=== PATIENT | female | born 1980 | race Caucasian/White ===

== ENCOUNTER 2017-08-21 13:18 | Inpatient (IN) | payer OTHER ==
[~2017-08-21] VITALS: Ht 167.6 cm; Wt 52.6 kg
[2017-08-21 14:52] LABS: APPEARANCE SL.HAZY ((CLEAR)); BILIRUBIN NEGATIVE; BLOOD NEGATIVE; COLOR YELLOW ((YELLOW)); GLUCOSE (STRIP) NEGATIVE; KETONES 5; LEUKOCYTES NEGATIVE; NITRITE NEGATIVE; PROTEIN (STRIP) NEGATIVE; SPECIFIC GRAVITY 1.031 (1.000-1.030); UROBILINOGEN 0.2 MG/DL (0.2-1.0)
[2017-08-21 14:55] LABS: BACTERIA NONE SEEN /HPF; EPITHELIAL CELLS RARE /HPF; MUCUS TRACE /LPF; RED BLOOD CELLS 0-5 /HPF (0-5); WHITE BLOOD CELLS 0-5 /HPF (0-5)
[2017-08-21 14:56] LABS: HEMATOCRIT 33.1 % (36.0-46.0); HEMOGLOBIN 11.4 G/DL (11.9-15.5); MCH 31.3 PG (29.0-34.0); MCHC 34.4 G/DL (30.0-36.0); MCV 90.9 FL (83-99); PLATELET COUNT 231 K/uL (156-360); RBC DIS.WIDTH-CV 13.7 % (11.8-14.6); RBC DIS.WIDTH-SD 46.2 % (39-53); RED BLOOD COUNT 3.64 M/uL (3.80-5.20); WHITE BLOOD COUNT 6.6 K/uL (4.1-10.2)
[2017-08-21 15:04] LABS: AMPHETAMINE PRESUMPTIVE POSITIVE (500 ng/mL); BENZODIAZEPINES PRESUMPTIVE POSITIVE (150 ng/mL); COCAINE NEGATIVE (150 ng/mL); METHAMPHETAMINE NEGATIVE (500 ng/mL); OPIATES (MORPHINE) NEGATIVE (100 ng/mL); PHENCYCLIDINE NEGATIVE (25 ng/mL); THC CANNABINOIDS PRESUMPTIVE POSITIVE (50 ng/mL)
[2017-08-21 15:05] LABS: ALBUMIN 4.1 g/dL (3.2-4.8); CHLORIDE 107 mEq/L (99-109); SODIUM 142 mEq/L (136-147)
[2017-08-21 15:05] LABS: BARBITURATES NEGATIVE (200 ng/mL); BUPRENORPHINE NEGATIVE (10 ng/mL); METHADONE NEGATIVE (200 ng/mL); OXYCODONE NEGATIVE (100 ng/mL); PROPOXYPHENE NEGATIVE (300 ng/mL); TRICYCLIC ANTIDEPRESSANTS NEGATIVE (300 ng/mL)
[2017-08-21 15:07] LABS: GLUCOSE 81 mg/dL (70-99)
[2017-08-21 15:08] LABS: TOTAL PROTEIN 6.9 g/dL (6.4-8.3)
[2017-08-21 15:09] LABS: TOTAL BILIRUBIN 0.2 mg/dL (0.0-1.0)
[2017-08-21 15:10] LABS: SERUM ETHYL ALCOHOL < 10 mg/dL
[2017-08-21 15:11] LABS: ALKALINE PHOSPHATASE 48 IU/L (3-129); CREATININE 0.7 mg/dL (0.6-1.3); GFR ESTIMATE (CALCULATED) > 59 mL/min/
[2017-08-21 15:12] LABS: UREA NITROGEN (BUN) 22 mg/dL (9-23)
[2017-08-21 15:13] LABS: AST (GOT) 17 IU/L (2-34)
[2017-08-21 15:14] LABS: ALT (GPT) 15 IU/L (3-49)
[2017-08-21 15:22] LABS: QUANTITATIVE HCG < 4.0 MIU/ML
[2017-08-21 15:34] LABS: BENZODIAZEPINES, URINE SCREEN POSITIVE (200 ng/mL)
[2017-08-21] MEDS ORDERED: KLONOPIN1 MG PO ×2 (16:54→16:55)
[2017-08-21] MEDS ORDERED: ADDERALL XR 1010 MG PO (16:54)
[2017-08-21] MEDS ORDERED: IBUPROFEN800 MG PO (16:56)
[2017-08-21 17:18] VITALS: BP 104/57
[2017-08-22 07:44] VITALS: BP 96/51
[2017-08-22 15:25] VITALS: BP 90/55
[2017-08-23 07:27] VITALS: BP 138/70
[2017-08-23 15:38] VITALS: BP 113/58
[2017-08-24 07:25] VITALS: BP 100/56
[2017-08-24 15:52] VITALS: BP 142/84
[2017-08-25 07:59] VITALS: BP 107/62
[2017-08-25] MEDS ORDERED: VENLAFAXINE HC150 M1 PO (09:47)
== END 2017-08-25 12:53 | disposition home or self-care (01) | DRG 885 ==
LOC: EME 13:18 → 1WEST 16:20 → EDOF 16:20 → ENRESERV 16:46 → 1WEST 17:02
PROVIDERS: Emergency Medicine
DX: F33.9 Major depressive disorder, recurrent, unspecified (principal); F13.11 Sedative, hypnotic or anxiolytic abuse, in remission; F41.0 Panic disorder [episodic paroxysmal anxiety]; F60.9 Personality disorder, unspecified; R45.851 Suicidal ideations; Z81.8 Family history of other mental and behavioral disorders; Z91.5 Personal history of self-harm; Z88.2 Allergy status to sulfonamides
CPT/HCPCS: 80053; 81003; 84702; 84999; 85027; 90839; 97150 GO; 97165 GO; 99281; 99285; G0480; Q0177